=== PATIENT | female | born 1970 | race Caucasian/White ===

== ENCOUNTER → 2018-06-13 | Outpatient (CLI) | payer OTHER | LOC: COL.RAD 08:36 | DX: N13.70 Vesicoureteral-reflux, unspecified (principal) ==

== ENCOUNTER → 2018-08-31 | Outpatient (CLI) | payer OTHER | LOC: BHSO 11:55 | DX: F41.0 Panic disorder [episodic paroxysmal anxiety] (principal) ==

== ENCOUNTER → 2018-10-08 | Outpatient (CLI) | payer OTHER | LOC: BHSO 13:02 | DX: F41.0 Panic disorder [episodic paroxysmal anxiety] (principal) | CPT/HCPCS: G0463 ==

== ENCOUNTER → 2018-11-27 | Outpatient (CLI) | payer OTHER | LOC: BHSO 10:36 | DX: F41.0 Panic disorder [episodic paroxysmal anxiety] (principal) | CPT/HCPCS: G0463 ==

== ENCOUNTER → 2019-01-28 | Outpatient (CLI) | payer OTHER | LOC: BHSO 13:23 | DX: F41.0 Panic disorder [episodic paroxysmal anxiety] (principal) | CPT/HCPCS: G0463 ==

== ENCOUNTER → 2019-02-18 | Outpatient (CLI) | payer OTHER | LOC: BHSO 14:12 | DX: F41.1 Generalized anxiety disorder (principal) ==

== ENCOUNTER → 2019-02-26 | Outpatient (CLI) | payer OTHER | LOC: BHSO 14:01 | DX: F41.1 Generalized anxiety disorder (principal) ==

== ENCOUNTER → 2019-03-20 | Outpatient (CLI) | payer OTHER | LOC: BHSO 13:18 | DX: F41.0 Panic disorder [episodic paroxysmal anxiety] (principal) | CPT/HCPCS: G0463 ==

== ENCOUNTER → 2019-06-05 | Outpatient (CLI) | payer OTHER | LOC: BHSO 13:05 | DX: F41.1 Generalized anxiety disorder (principal) | CPT/HCPCS: G0463 ==

== ENCOUNTER 2020-01-13 07:19 | Outpatient (CLI) | payer OTHER ==
[~2020-01-13] VITALS: Ht 167.7 cm; Wt 55.3 kg
[2020-01-13 08:11] LABS: HEMATOCRIT 37.1 % (37.0-47.0); HEMOGLOBIN 12.5 g/dl (12.5-16.0); MEAN CELL VOLUME 91 fl (80.0-100.0); MEAN CORPUSCULAR HEMOGLOBIN 31 pg (27.0-31.0); MEAN CORPUSCULAR HGB CONC 34 g/dl (33.0-37.0); MEAN PLATELET VOLUME 10.8 fl (7.4-10.4); PLATELET COUNT 212 K/mm3 (130-400); RED BLOOD COUNT 4.07 M/mm3 (4.10-5.30); REDCELL DISTRIBUTION WIDTH-CV 11.8 % (11.5-14.5)
[2020-01-13 08:14] LABS: PROTHROMBIN TIME 11.5 SECONDS (9.7-12.8)
[2020-01-13 08:19] VITALS: BP 121/86; PULSE 67; TEMP 97.9
[2020-01-13 08:22] LABS: CALCIUM 9.2 mg/dL (8.4-10.2); CREATININE, serum 0.73 (0.52-1.25)
[2020-01-13] MEDS ORDERED: ASPIRIN 81M81 MG/TA2 PO (08:28)
[2020-01-13] MEDS ORDERED: ZYRTEC 10MG10 MG PO (08:29)
[2020-01-13] MEDS ORDERED: VITAMIN B COMPL1 SGL PO (08:29)
[2020-01-13] MEDS ORDERED: SINGULAIR 110 MG/TAB PO (08:30)
[2020-01-13] MEDS ORDERED: allergy shot INJ (08:31)
[2020-01-13] MEDS ORDERED: MASON NATURAL2000 IU PO (08:31)
[2020-01-13] MEDS ORDERED: KLONOPIN 0.5MG0.5 MG PO (08:32)
[2020-01-13] MEDS ORDERED: LAMICTAL150 MG PO ×2 (08:34)
[2020-01-13] MEDS ORDERED: MAG-OX 400400 MG/TAB PO (08:35)
[2020-01-13] MEDS ORDERED: PRILOSEC 20MG20 MG PO (08:35)
[2020-01-13] MEDS ORDERED: MIRALAX PA17 GM/Dose PO (08:36)
[2020-01-13] MEDS ORDERED: DITROPAN XL10 MG PO (08:36)
[2020-01-13] MEDS ORDERED: NATURAL E400 IU PO (08:37)
[2020-01-13] MEDS ORDERED: PROBIOTIC FORMU1 CAP PO (08:37)
[2020-01-13] MEDS ORDERED: REFRESH TEARS 330 ML OP (08:38)
[2020-01-13] MEDS ORDERED: FLONASEALLERGY NS (08:38)
[2020-01-13] MEDS ORDERED: NYQUIL GENERIC PO (08:39)
[2020-01-13] MEDS ORDERED: PROAIR HFA0.09 MG/AC IH (08:39)
[2020-01-13 09:33] VITALS: BP 111/60; PULSE 71
[2020-01-13 09:45] VITALS: BP 103/68; PULSE 66
[2020-01-13 10:00] VITALS: BP 102/70; PULSE 58
--- NOTE | 2020-01-13 10:00 | NUR ---
Pt escorte dout via wheelchair by this nurse.
[2020-01-13 10:15] VITALS: BP 100/66; PULSE 54
--- NOTE | 2020-01-13 10:43 | NUR ---
Discharge instructions given to pt.pt verbalizes understanding.INT removed,catheter tip intact.
== END 2020-01-13 11:22 | disposition home or self-care (01) ==
LOC: COL.RAD 07:19
PROVIDERS: Internal Medicine Cardiovascular Disease
DX: Q21.1 Atrial septal defect (principal); R00.1 Bradycardia, unspecified; I45.10 Unspecified right bundle-branch block
CPT/HCPCS: J2704

== ENCOUNTER → 2020-02-04 | Outpatient (CLI) | payer OTHER ==
[~2020-02-04] MED LIST: ASPIRIN 81M81 MG/TA2 PO; DITROPAN XL10 MG PO; FLONASEALLERGY NS; KLONOPIN 0.5MG0.5 MG PO; LAMICTAL150 MG PO; MAG-OX 400400 MG/TAB PO; MASON NATURAL2000 IU PO; MIRALAX PA17 GM/Dose PO; NATURAL E400 IU PO; NYQUIL GENERIC PO; PRILOSEC 20MG20 MG PO; PROAIR HFA0.09 MG/AC IH; PROBIOTIC FORMU1 CAP PO; REFRESH TEARS 330 ML OP; SINGULAIR 110 MG/TAB PO; VITAMIN B COMPL1 SGL PO; ZYRTEC 10MG10 MG PO; allergy shot INJ
== END ==
LOC: BHSO 15:57
DX: F41.1 Generalized anxiety disorder (principal)
CPT/HCPCS: G0463

== ENCOUNTER → 2020-04-24 | Outpatient (CLI) | payer OTHER | LOC: COL.PUL 13:00 | DX: R06.02 Shortness of breath (principal) ==

== ENCOUNTER → 2020-05-12 | Outpatient (CLI) | payer OTHER | LOC: BHSO 14:48 | DX: F41.1 Generalized anxiety disorder (principal) | CPT/HCPCS: G0463 ==

== ENCOUNTER → 2020-06-13 | Outpatient (CLI) | payer OTHER | END | disposition still patient (30) | LOC: COL.PUL 06-12 13:00 | DX: R06.02 Shortness of breath (principal) | CPT/HCPCS: J7674 ==

== ENCOUNTER 2021-12-22 07:32 | Day surgery (SDC) | payer OTHER ==
[2021-12-22] VITALS (142 sets, daily range): BP systolic 86–164; BP diastolic 55–73; PULSE 51–65; TEMP 98.2; O2SAT 94–97
[~2021-12-22] VITALS: Ht 167.6 cm; Wt 53.4 kg
[2021-12-22 09:00] LABS: HEMOGLOBIN 12.3 g/dl (12.5-16.0); MEAN CELL VOLUME 94 fl (80.0-100.0); MEAN CORPUSCULAR HEMOGLOBIN 33 pg (27-31); MEAN CORPUSCULAR HGB CONC 35 g/dl (33.0-37.0); MEAN PLATELET VOLUME 10.5 fl (7.4-10.4); PLATELET COUNT 167 K/mm3 (130-400); RED BLOOD COUNT 3.77 M/mm3 (4.10-5.30); REDCELL DISTRIBUTION WIDTH-CV 12.1 % (11.5-14.5)
[2021-12-22 09:01] LABS: HEMATOCRIT 35.4 % (37.0-47.0)
[2021-12-22 09:07] LABS: INR 1.1 (0.8-3.0); PROTHROMBIN TIME 12.9 SECONDS (9.7-12.8)
[2021-12-22 09:13] LABS: CREATININE, serum 0.74 mg/dL (0.57-1.11); POTASSIUM 4.4 mmol/L (3.5-4.5)
[2021-12-22 09:19] LABS: PARTIAL THROMBOPLASTIN TIME 28.9 SECONDS (26.0-37.0)
[2021-12-22] MEDS ORDERED: ASTELIN NASAL S34 ML NS (09:29)
[2021-12-22] MEDS ORDERED: NATURE'S BLE1000 MCG PO (09:30)
[2021-12-22] MEDS ORDERED: BENTYL 20MG20 MG/TAB PO (09:31)
[2021-12-22] MEDS ORDERED: BENADRYL50 MG PO (09:32)
[2021-12-22] MEDS ORDERED: DITROPAN XL10 MG PO (09:35)
[2021-12-22] MEDS ORDERED: CARAFATE 1GM1 G PO (09:36)
[2021-12-22] MEDS ORDERED: BRINTELLIX20 PO (09:38)
--- NOTE | 2021-12-22 10:15 | NUR ---
See merge for all medication, assessment, intervention, and vital sign times.
--- NOTE | 2021-12-22 14:30 | NUR ---
Pt tolerated procedure without complication, son and daughter with staff at pt discharge, pt in wheelchair for exit. Discharge education given, pt verbalizes understanding.
== END 2021-12-22 14:30 | disposition home or self-care (01) ==
LOC: COL.CAR 07:32
PROVIDERS: Internal Medicine Cardiovascular Disease
DX: R07.9 Chest pain, unspecified (principal)
CPT/HCPCS: C1769; C1894; J1200; J1644; J2930; J3010